=== PATIENT | female | born 1975 | race Caucasian/White ===

== ENCOUNTER 2021-05-29 09:11 | Emergency (ER) | payer BC, OTHER ==
[2021-05-29] MEDS ORDERED: ACETAMINOPHEN 500 MG TABLET (FP) PO ONE (09:13)
[2021-05-29 09:22] VITALS: PULSE 80; TEMP 99.5; BMI 27.4
[2021-05-29] MEDS ORDERED: ACETAMINOPHEN 325 MG TABLET (FP) ONE (09:24)
[2021-05-29] MEDS ORDERED: IBUPROFEN 400 MG TABLET (FP) PO ONE ×2 (11:16→11:19)
[2021-05-29 12:32] VITALS: BP 138/84
== END 2021-05-29 13:05 | disposition home or self-care (01) ==
LOC: FER 09:11
DX: S89.91XA Unspecified injury of right lower leg, initial encounter (principal); X50.9XXA Other and unspecified overexertion or strenuous movements or postures, initial encounter
CPT/HCPCS: 73560-TC-RT-FY; 73610-TC-RT-FY; 73630-TC-RT-FY; 73700-TC-RT; 99284-25